=== PATIENT | male | born 1960 | race Caucasian/White ===

== ENCOUNTER → 2017-02-15 | Outpatient (CLI) | payer BC ==
[~2017-02-15] MED LIST: GOLI50IN SC
--- NOTE | 2017-02-15 09:09 | DIAGNOSTIC IMAGING REPORT ---
VENOUS DOPP LOWER EXT UNILAT CLINICAL HISTORY: I80.9 pain. Edema. TECHNIQUE: Venous Doppler COMPARISON STUDY: None FINDINGS: Superficial thrombophlebitis distal aspect left greater saphenous vein within the calf. All deep venous structures are unremarkable. IMPRESSION: 1. Study is negative for deep venous thrombosis. 2. Focal superficial thrombophlebitis distal left greater saphenous vein within the mid calf. The above report was generated using voice recognition software. It may contain grammatical, syntax or spelling errors. Electronically signed by: Jus Jung M.D. 02/15/2017 9:08 AM Dictated Date/Time: 02/15/2017 9:06 AM
== END | disposition home or self-care (01) ==
LOC: C.ULTR 07:42
PROVIDERS: ATTEND Internal Medicine Hematology & Oncology
DX: I80.02 Phlebitis and thrombophlebitis of superficial vessels of left lower extremity (principal)